=== PATIENT | female | born 1970 | race Caucasian/White ===

== ENCOUNTER 2018-01-05 11:04 | Emergency (ER) | payer BC | END 2018-01-05 11:26 | disposition home or self-care (01) | LOC: E/R 11:04 | DX: R50.9 Fever, unspecified (principal); R51 Headache; M25.50 Pain in unspecified joint | CPT/HCPCS: 99283 ==

== ENCOUNTER 2019-04-16 14:37 | Emergency (ER) | payer BC | END 2019-04-16 15:10 | disposition home or self-care (01) | LOC: FTE 14:37 | DX: M72.2 Plantar fascial fibromatosis (principal) | CPT/HCPCS: 99282 ==